=== PATIENT | male | born 1980 | race Caucasian/White ===

== ENCOUNTER 2021-12-23 14:45 | Emergency (ER) | payer OTHER ==
[2021-12-23 15:08] VITALS: BP 146/61; PULSE 91
[2021-12-23] MEDS ORDERED: predniSONE 20 MG Tab PO ONE (15:58)
[2021-12-23] MEDS ORDERED: Colchicine 0.6 MG Tab PO ONE ×2 (15:58→16:16)
== END 2021-12-23 16:37 | disposition home or self-care (01) ==
LOC: JP.ED 14:45
DX: M10.072 Idiopathic gout, left ankle and foot (principal); K21.9 Gastro-esophageal reflux disease without esophagitis; Z91.030 Bee allergy status; Z72.0 Tobacco use; Z79.899 Other long term (current) drug therapy
CPT/HCPCS: 73630-26-LT; 73630-LT; 99283; 99283-25; A9270-GY; J7512

== ENCOUNTER 2022-08-19 18:14 | Emergency (ER) | payer OTHER ==
[2022-08-19 18:27] VITALS: BP 168/92; PULSE 62
[2022-08-19] MEDS ORDERED: methylPREDNISolone Sodium Succinate 125 MG/2 ML SDV IM ONE (18:50)
== END 2022-08-19 19:05 | disposition home or self-care (01) ==
LOC: JP.ED 18:14
DX: M10.9 Gout, unspecified (principal); K21.9 Gastro-esophageal reflux disease without esophagitis; Z72.0 Tobacco use; Z91.030 Bee allergy status; Z79.899 Other long term (current) drug therapy
CPT/HCPCS: 96372; 99283; J2930